=== PATIENT | female | born 1975 | race Caucasian/White ===

== ENCOUNTER 2020-10-22 10:30 | Outpatient (RCR) | payer OTHER, SELFPAY ==
[2020-07-31 14:29] VITALS: BP_SYST 90
--- NOTE | 2020-07-31 16:03 | PTOPEVAL ---
Thank you for referring Jina Pulido to [facility] [place].? The patient is scheduled to be seen for therapy? 2x/week for 10 weeks. Please review, sign, date and return this plan of care ANISA. I agree with and certify that the following plan of care is medically necessary. Referring Physician Date Attending Provider: Sean Clayton Referring Provider: *PT Outpatient Evaluation Start: 07/31/20 14:26 Freq: Status: Active Protocol: Document 07/31/20 14:29 SUNG (Rec: 07/31/20 15:22 SUNG [id number]) Therapy Assessment Status Assessment Status Assessment Status Evaluation Outpatient Past Medical History Past Medical History Source of Past Medical History Patient,Recalled from Previous Visit, Confirmed with Patient /Family Neurological History Hx Neurological Disorders No Significant History Cardiovascular History Hx Hypertension Yes Hx Irregular Heartbeat Yes Respiratory History Hx Respiratory Disorders No Significant History Gastrointestinal History Hx Gastrointestinal Disorders No Significant History Genitourinary History Hx Genitourinary Disorders No Significant History Musculoskeletal History Hx Orthopedic Surgery Yes: right TOS scar tissue removal 06/03/20 Hx Other Musculoskeletal Disorders Yes: ira TOS decompression surgery: R side: 03/28 and left side:01/28, Hematological History Hx Hematological Disorders No Significant History Endocrine History Hx Endocrine Disorders No Significant History HEENT History Hx HEENT Disorders No Significant History Integumentary History Hx Skin Disorders No Significant History Reproductive History Hx Reproductive Disorders No Significant History Psychosocial History Hx Depression Yes Pain History Has Past Pain Affected Your Daily Life Yes: ira UE from TOS surgery Anesthesia History Hx Anesthesia Reactions No Significant History Evaluation Information Problem Diagnosis right TOS scar tissue removal Onset 06/03/20 Cause NTOS Subjective Information Pt had a progression of her Query Text:As Reported By Patient/ neck and head pain in November 2019. Reports the pain the neck/head region has improved since surgery. She had also had a progression of numbness and tingling into right UE. The numbness progress since the surgery. Reports tightness of right arm/forearm region.
[2020-09-11 13:22] VITALS: BP_SYST 175
--- NOTE | 2020-09-11 15:29 | PTOPEVAL ---
Thank you for referring Jina Pulido to [facility].? The patient is scheduled to be seen for therapy? 2x/week for 5 weeks. Please review, sign, date and return this plan of care ANISA. I agree with and certify that the following plan of care is medically necessary. Referring Physician Date Attending Provider: Sean Clayton *PT Outpatient Evaluation Start: 07/31/20 14:26 Freq: Status: Active Protocol: Document 09/11/20 13:22 CAP (Rec: 09/11/20 14:18 CAP [id number]) Therapy Assessment Status Assessment Status Assessment Status Re-evaluation Outpatient Past Medical History Past Medical History Source of Past Medical History Patient,Recalled from Previous Visit, Confirmed with Patient /Family Neurological History Hx Neurological Disorders No Significant History Cardiovascular History Hx Hypertension Yes Hx Irregular Heartbeat Yes Respiratory History Hx Respiratory Disorders No Significant History Gastrointestinal History Hx Gastrointestinal Disorders No Significant History Genitourinary History Hx Genitourinary Disorders No Significant History Musculoskeletal History Hx Orthopedic Surgery Yes: right TOS scar tissue removal 06/03/20 Hx Other Musculoskeletal Disorders Yes: ira TOS decompression surgery: R side: 03/28 and left side:01/28, Hematological History Hx Hematological Disorders No Significant History Endocrine History Hx Endocrine Disorders No Significant History HEENT History Hx HEENT Disorders No Significant History Integumentary History Hx Skin Disorders No Significant History Reproductive History Hx Reproductive Disorders No Significant History Psychosocial History Hx Depression Yes Pain History Has Past Pain Affected Your Daily Life Yes: ira UE from TOS surgery Anesthesia History Hx Anesthesia Reactions No Significant History Evaluation Information Problem Diagnosis right TOS scar tissue removal Onset 06/03/20 Cause NTOS Additional Evaluation Detail Pt had a progression of her neck and head pain in November 2019. s/p TOS scar tissue removal 06/03/20. s/p lidocane injections . Subjective Information Reports Reports the pain the Query Text:As Reported By Patient/ neck/head region has improved Family since surgery. She had also had a progression of numbness and tingling into right UE.
--- NOTE | 2020-10-18 10:23 | PTOPEVAL ---
Thank you for referring Jina Pulido to [facility].? Pt has received 20 therapy visits to address UE limitations related to scar tissue removal surgery for NTOS. See summary below for progress towards improved function. The patient is scheduled to be seen for therapy?1 x/week for 4 weeks. Please review, sign, date and return this plan of care ANISA. I agree with and certify that the following plan of care is medically necessary. Referring Physician Date Attending Provider: Sean Clayton Progress Note Problem Diagnosis right TOS scar tissue removal Onset 06/03/20 Cause NTOS Subjective Information She reports she is able to Query Text:As Reported By Patient/ sleep better with assist of Family medication. Does not feel the numbness and tingling has improved since surgery. Reports the neck pain and bicep pain has improved with decreased tightness. Reports improved ability to perform reaching act. 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 No change since surgery. She reports cont weakness of left UE with limited alida with lifting and carrying task. Cont to c/o tightness of right upper arm with reaching motion. Pain Assessment Right Neck Reported Pain Level 2 Pain Description Aching Pain Frequency Chronic,Intermittent Lowest Pain Intensity 0 Greatest Pain Intensity 5 Pain Aggravating Factors ADL's,Exercise/Activity, Lifting,Prolonged Position, Right Arm(s) Reported Pain Level 3 Pain Description Aching,Burning,Numbness, Tightness Pain Frequency Chronic Lowest Pain Intensity 1 Greatest Pain Intensity 5 Pain Aggravating Factors ADL's,Exercise/Activity, Lifting,Prolonged Position, Sitting Cervical and Lumbar ROM Cervical Flexion (0-60) 70 Query Text:Active in Degrees Cervical Extension (0-70) 60 Query Text:Active in Degrees Cervical Lateral Flexion Right (0-50) 38 Query Text:Active in Degrees Cervical Lateral Flexion Left (0-50) 35 Query Text:Active in Degrees Cervical Rotation Right (0-90) 85
--- NOTE | 2020-10-25 11:52 | PCPTNOTE ---
This treatment is being continued on visit number 22 to account [id number]. Please see documentation on both accounts to view progress. Completed interventions, outcomes, and problems have been marked as Inactive to facilitate the copying of the Care plan routine for recurring accounts.
== END 2020-10-24 11:42 | disposition home or self-care (01) ==
LOC: ANHPT 10:30
DX: G54.0 Brachial plexus disorders (principal)
CPT/HCPCS: 97014; 97110; 97112; 97140; 97163; G0283

== ENCOUNTER 2020-11-12 14:00 | Outpatient (RCR) | payer OTHER, SELFPAY ==
[2020-10-24 11:42] VITALS: BP_SYST 175
--- NOTE | 2020-11-13 11:55 | PTOPEVAL ---
Thank you for referring Jina Pulido to [facility].? Pt has received 23 therapy visits from 07/31/20-11/12/20 to address right UE limitations related to her surgery. She demonstrates improved joint motion, improved pain level and improved strength as are result of skilled therapy services. She has partially achieved her therapy goals at this time. DC skilled therapy services at this time with Jina Manley to continue with her home program. Please review, sign, date and return this discharge summary ANISA. I agree with and certify that the following plan of care is medically necessary. Referring Physician Date Attending Provider: Sean Clayton Physical Therapy Discharge Note Problem Diagnosis right TOS scar tissue removal Onset 06/03/20 Cause NTOS Additional Evaluation Detail Pt had a progression of her neck and head pain in November 2019. s/p TOS scar tissue removal 06/03/20. s/p lidocane injections . Subjective Information Does not feel the numbness and Query Text:As Reported By Patient/ tingling has improved with Family her recent surgery. Reports the bicep pain and tightness has improved but does continue to feel like it wants to tighten up again. She will receive botox in 3 wk to SCM and pec minor. Reports improved ability to perform overhead reaching act. Cont tightness with reaching behind back. 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 She feels this has declined since surgery. She is able to tolerate 10-15 min if changing hands with task. She reports arm strength is slightly better than when she started. Pain Assessment Right Shoulder(s) Reported Pain Level 4 Pain Description Aching,Burning Pain Frequency Chronic,Continuous Lowest Pain Intensity 3 Greatest Pain Intensity 7 Pain Aggravating Factors Exercise/Activity Cervical and Lumbar ROM Cervical Flexion (0-60) 70 Query Text:Active in Degrees Cervical Extension (0-70) 60 Query Text:Active in Degrees Cervical Lateral Flexion Right (0-50) 35 Query Text:Active in Degrees Cervical Lateral Flexion Left (0-50) 38
== END 2020-11-14 08:53 | disposition home or self-care (01) ==
LOC: ANHPT 14:00
DX: G54.0 Brachial plexus disorders (principal)
CPT/HCPCS: 97014; 97110; G0283